=== PATIENT | female | born 1975 | race Asian ===

== ENCOUNTER → 2017-04-28 | Outpatient (CLI) | payer OTHER ==
[~2017-04-28] MED LIST: FRRS300 PO; IBUP600T44 PO; OXYC-57 PO; PRENTAB26 PO
--- NOTE | 2017-04-28 13:09 | DIAGNOSTIC IMAGING REPORT ---
SOFT TISS HEAD/NECK-THYROID HISTORY: Nodule THYROID NODULE COMPARISON: None. FINDINGS: Right lobe: Maximum dimension 4.9 cm. Mild in homogeneity of internal architecture. 7 mm lower pole slightly complex nodule. Left lobe: Maximum dimension 4.9 cm. 3 mm nodule mid pole. Isthmus: No nodules. IMPRESSION: 1. Mild heterogeneity of thyroid architecture. 2. Small bilateral nodules 3. No evidence for a dominant nodule 4. A 6-12 months repeat ultrasound follow-up is felt to be sufficient The above report was generated using voice recognition software. It may contain grammatical, syntax or spelling errors. Electronically signed by: Brannon Giron M.D. 04/28/2017 1:07 PM Dictated Date/Time: 04/28/2017 1:04 PM
== END | disposition home or self-care (01) ==
LOC: C.ULTR 12:19
PROVIDERS: ATTEND Family Medicine
DX: E04.2 Nontoxic multinodular goiter (principal)